=== PATIENT | male | born 1940 | race Caucasian/White ===

== ENCOUNTER 2016-05-01 14:50 | Inpatient (IN) | payer MEDICARE, OTHER ==
[~2016-05-01] VITALS: Ht 190.5 cm; Wt 82.3 kg
[~2016-05-01 14:50] MED LIST: ASPIRIN 81M81 MG/TA2 PO; COUMADIN 1MG1 MG/TAB PO; COUMADIN 2MG2 MG/TAB PO; CRESTOR20 MG PO; LOPRESSOR 225 MG/TAB PO; MULTIPLE VITAMI1 CAP PO; NORVASC 5MG5 MG/TAB PO; PRINIVIL5 MG PO; VITAMIN C500 MG PO
[2016-05-01] MEDS ORDERED: COUMADIN 2MG2 MG/TAB PO (16:01)
[2016-05-01] MEDS ORDERED: CALCITRIOL PO (16:03)
[2016-05-01] MEDS ORDERED: NATURAL E400 IU PO (16:06)
[2016-05-01] MEDS ORDERED: XALATAN EYE DROPS OU (16:07)
[2016-05-01] MEDS ORDERED: PROAIR HFA0.09 MG/AC IH (16:08)
[2016-05-01 16:33] VITALS: BP 164/88; PULSE 110; TEMP 98.2
[2016-05-01 16:44] VITALS: BP 163/88; PULSE 106; TEMP 97.6
[2016-05-01 18:01] LABS: BASO # 0.1 (0.0-0.2); BASO % 0.9 % (0.0-2.0); EOS # 0.1 (0.0-0.7); EOS % 0.9 % (0-4.0); GRAN # 5.7 (1.4-6.5); LYMPH # 0.6 (1.2-3.4); LYMPH % 8.1 % (20.0-51.0); MEAN CELL VOLUME 87 fl (80.0-100.0); MEAN CORPUSCULAR HGB CONC 34 g/dl (33.0-37.0); MONO # 0.5 (0.1-0.6); MONO % 7.4 % (1.7-9.3); PLATELET COUNT 148 K/mm3 (130-400); RED BLOOD COUNT 3.21 M/mm3 (4.20-5.60); REDCELL DISTRIBUTION WIDTH-CV 14.4 % (11.5-14.5); RETIC % 0.8 % (0.5-3.52)
[2016-05-01 18:03] LABS: HEMOGLOBIN 9.5 g/dl (13.5-18.0); MEAN CORPUSCULAR HEMOGLOBIN 30 pg (27.0-31.0)
[2016-05-01 18:14] LABS: ADJUSTED CALCIUM 8.8 mg/dL (8.4-10.2); ALBUMIN 3.8 gm/dL (3.5-5.0); BILIRUBIN,TOTAL 0.4 mg/dL (0.0-1.0); CALCIUM 8.6 mg/dL (8.4-10.2); POTASSIUM 4.8 mmol/L (3.4-5.0); TOTAL PROTEIN 7.7 gm/dL (6.4-8.2); URIC ACID 7.2 mg/dL (3.5-8.5)
[2016-05-01 18:23] LABS: CREATININE, serum 8.41 mg/dL (0.66-1.25)
[2016-05-01 18:47] LABS: INR 4.4 (0.8-3.0); PROTHROMBIN TIME 51.3 SECONDS (9.7-12.8)
[2016-05-01 18:48] LABS: PHOSPHOROUS 7.5 mg/dL (2.5-4.5)
[2016-05-01 19:09] VITALS: BP 166/91; PULSE 107; TEMP 98.5
[2016-05-01 21:58] LABS: PH 6 (5-8); SQUAMOUS EPITHELIAL 0-2 /hpf; URINE APPEARANCE Hazy; URINE BACTERIA Rare /hpf; URINE BILIRUBIN Negative (NEGATIVE); URINE BLOOD 3+ (NEGATIVE); URINE COLOR Yellow; URINE GLUCOSE 1+ (NEGATIVE); URINE KETONE Negative (NEGATIVE); URINE RBC >50 /hpf; URINE UROBILINOGEN Negative (NEGATIVE); URINE WBC >50 /hpf
[2016-05-01 23:31] VITALS: BP 157/88; PULSE 104; TEMP 98.5
[2016-05-02] VITALS (12 sets, daily range): BP systolic 137–163; BP diastolic 73–89; PULSE 83–106; TEMP 97.3–98.7
[2016-05-02 08:24] LABS: INR 2.5 (0.8-3.0); PROTHROMBIN TIME 28.9 SECONDS (9.7-12.8)
[2016-05-02 08:33] LABS: ALBUMIN 3.8 gm/dL (3.5-5.0); CALCIUM 8.7 mg/dL (8.4-10.2); PHOSPHOROUS 7.6 mg/dL (2.5-4.5); POTASSIUM 4.8 mmol/L (3.4-5.0)
[2016-05-02 08:49] LABS: CREATININE, serum 8.17 mg/dL (0.66-1.25)
[2016-05-02 09:18] LABS: BASO % 0.8 % (0.0-2.0); EOS # 0.2 (0.0-0.7); EOS % 3.2 % (0-4.0); GRAN # 3.9 (1.4-6.5); GRAN % 72.7 % (42.2-75.2); LYMPH # 0.8 (1.2-3.4); LYMPH % 14.1 % (20.0-51.0); MEAN CELL VOLUME 87 fl (80.0-100.0); MEAN CORPUSCULAR HGB CONC 34 g/dl (33.0-37.0); MEAN PLATELET VOLUME 11.5 fl (7.4-10.4); MONO # 0.5 (0.1-0.6); PLATELET COUNT 168 K/mm3 (130-400); RED BLOOD COUNT 3.14 M/mm3 (4.20-5.60); REDCELL DISTRIBUTION WIDTH-CV 14.4 % (11.5-14.5); WHITE BLOOD COUNT 5.3 K/mm3 (4.8-10.8)
[2016-05-02 09:19] LABS: HEMATOCRIT 27.4 % (42.0-52.0); HEMOGLOBIN 9.3 g/dl (13.5-18.0); MEAN CORPUSCULAR HEMOGLOBIN 30 pg (27.0-31.0)
[2016-05-03] VITALS (8 sets, daily range): BP systolic 129–168; BP diastolic 70–86; PULSE 88–103; TEMP 97.9–98.5
[2016-05-03 07:51] LABS: INR 1.5 (0.8-3.0); PROTHROMBIN TIME 16.6 SECONDS (9.7-12.8)
[2016-05-03 07:56] LABS: ALBUMIN 4.1 gm/dL (3.5-5.0); CALCIUM 9.4 mg/dL (8.4-10.2); PHOSPHOROUS 8.4 mg/dL (2.5-4.5); POTASSIUM 4.8 mmol/L (3.4-5.0)
[2016-05-03 08:58] LABS: CREATININE, serum 7.5 mg/dL (0.66-1.25)
[2016-05-04 03:45] VITALS: BP 140/72; PULSE 97; TEMP 97.4
[2016-05-04 07:18] VITALS: BP 154/69; PULSE 99
[2016-05-04 09:16] LABS: INR 1.8 (0.8-3.0); PROTHROMBIN TIME 20.4 SECONDS (9.7-12.8)
[2016-05-04 09:42] LABS: CALCIUM 8.9 mg/dL (8.4-10.2); PHOSPHOROUS 7.4 mg/dL (2.5-4.5); POTASSIUM 3.9 mmol/L (3.4-5.0)
[2016-05-04 09:44] LABS: CREATININE, serum 6.31 mg/dL (0.66-1.25)
[2016-05-04 11:25] VITALS: BP 145/72; PULSE 100; TEMP 98.6
[2016-05-04 15:13] VITALS: BP 128/69; PULSE 104; TEMP 98
[2016-05-04 19:18] VITALS: BP 119/63; PULSE 104; TEMP 98.7
[2016-05-04 22:43] VITALS: BP 118/61; PULSE 90; TEMP 98.8
[2016-05-05 04:38] VITALS: BP 128/68; PULSE 88; TEMP 97.3
[2016-05-05 07:25] VITALS: BP 142/65; PULSE 88; TEMP 97.8
[2016-05-05 07:57] LABS: PROTHROMBIN TIME 23.2 SECONDS (9.7-12.8)
[2016-05-05 08:13] LABS: ALBUMIN 3.6 gm/dL (3.5-5.0); CALCIUM 8.5 mg/dL (8.4-10.2); PHOSPHOROUS 5.5 mg/dL (2.5-4.5); POTASSIUM 3.9 mmol/L (3.4-5.0)
[2016-05-05 08:15] LABS: CREATININE, serum 4.85 mg/dL (0.66-1.25)
[2016-05-05] MEDS ORDERED: COUMADIN 2MG2 MG/TAB PO (09:36)
[2016-05-05] MEDS ORDERED: COUMADIN 1MG1 MG/TAB PO (09:36)
== END 2016-05-05 13:13 | disposition home or self-care (01) | DRG 682 ==
LOC: MEDICAL 14:50
PROVIDERS: Internal Medicine Gastroenterology; Internal Medicine Nephrology; Urology
PROC: 0DJD8ZZ Inspection of Lower Intestinal Tract, Via Natural or Artificial Opening Endoscopic (ICD-10-PCS; 2016-05-02)
PROC: 0T768DZ Dilation of Right Ureter with Intraluminal Device, Via Natural or Artificial Opening Endoscopic (ICD-10-PCS; principal; 2016-05-02 09:15)
PROC: 0TP98DZ Removal of Intraluminal Device from Ureter, Via Natural or Artificial Opening Endoscopic (ICD-10-PCS; 2016-05-02 09:15)
PROC: 0DJ08ZZ Inspection of Upper Intestinal Tract, Via Natural or Artificial Opening Endoscopic (ICD-10-PCS; 2016-05-02 09:15)
PROC: 0DBL8ZX Excision of Transverse Colon, Via Natural or Artificial Opening Endoscopic, Diagnostic (ICD-10-PCS; 2016-05-03)
DX: N17.9 Acute kidney failure, unspecified (principal); I50.23 Acute on chronic systolic (congestive) heart failure; I13.0 Hypertensive heart and chronic kidney disease with heart failure and stage 1 through stage 4 chronic kidney disease, or unspecified chronic kidney disease; K92.1 Melena; N18.4 Chronic kidney disease, stage 4 (severe); D63.1 Anemia in chronic kidney disease; Z85.46 Personal history of malignant neoplasm of prostate; E87.5 Hyperkalemia; Z95.2 Presence of prosthetic heart valve; Z79.01 Long term (current) use of anticoagulants; D12.3 Benign neoplasm of transverse colon; K62.7 Radiation proctitis; R73.9 Hyperglycemia, unspecified; N13.1 Hydronephrosis with ureteral stricture, not elsewhere classified
CPT/HCPCS: C1726; C1769; C2617; J0690; J0882; J1100; J2405; J2704; J2916; J3010; J7030; Q9967

== ENCOUNTER 2016-05-27 14:28 | Inpatient (IN) | payer MEDICARE, OTHER ==
[~2016-05-27] VITALS: Ht 190.5 cm; Wt 82.3 kg
[~2016-05-27 14:28] MED LIST changes: +CALCITRIOL PO; +NATURAL E400 IU PO; +PROAIR HFA0.09 MG/AC IH; +XALATAN EYE DROPS OU
[2016-05-27 16:22] VITALS: BP 146/82; PULSE 94; TEMP 98.5
[2016-05-27 18:00] LABS: ALBUMIN 3.5 gm/dL (3.5-5.0); CALCIUM 8.1 mg/dL (8.4-10.2); PHOSPHOROUS 6.9 mg/dL (2.5-4.5); POTASSIUM 4.8 mmol/L (3.4-5.0)
[2016-05-27 18:17] LABS: CREATININE, serum 7.36 mg/dL (0.66-1.25)
[2016-05-27 19:52] VITALS: BP 136/81; PULSE 94; TEMP 98
[2016-05-27 23:59] VITALS: BP 110/54; PULSE 92; TEMP 98.4
[2016-05-28 04:09] VITALS: BP 133/77; PULSE 86; TEMP 97.6
[2016-05-28 07:51] VITALS: BP 146/74; PULSE 91; TEMP 98.1
[2016-05-28 08:03] LABS: INR 2.5 (0.8-3.0); PROTHROMBIN TIME 28.8 SECONDS (9.7-12.8)
[2016-05-28 08:04] LABS: EOS # 0.2 (0.0-0.7); EOS % 4.5 % (0-4.0); LYMPH # 0.5 (1.2-3.4); LYMPH % 11.9 % (20.0-51.0); MEAN CELL VOLUME 85 fl (80.0-100.0); MEAN CORPUSCULAR HGB CONC 35 g/dl (33.0-37.0); MEAN PLATELET VOLUME 10.9 fl (7.4-10.4); MONO # 0.5 (0.1-0.6); MONO % 11.4 % (1.7-9.3); PLATELET COUNT 173 K/mm3 (130-400); RED BLOOD COUNT 2.69 M/mm3 (4.20-5.60); REDCELL DISTRIBUTION WIDTH-CV 13.8 % (11.5-14.5); WHITE BLOOD COUNT 4.2 K/mm3 (4.8-10.8)
[2016-05-28 08:17] LABS: HEMATOCRIT 22.9 % (42.0-52.0); MEAN CORPUSCULAR HEMOGLOBIN 30 pg (27.0-31.0)
[2016-05-28 08:19] LABS: ALBUMIN 3.2 gm/dL (3.5-5.0); CALCIUM 8.1 mg/dL (8.4-10.2); PHOSPHOROUS 6.6 mg/dL (2.5-4.5); POTASSIUM 4.4 mmol/L (3.4-5.0)
[2016-05-28 08:57] LABS: CREATININE, serum 7.08 mg/dL (0.66-1.25)
[2016-05-28 11:45] VITALS: BP 132/72; PULSE 88; TEMP 97.6
[2016-05-28] MEDS ORDERED: JANTOVEN1 MG PO (14:42)
[2016-05-28] MEDS ORDERED: COUMADIN 2MG2 MG/TAB PO (14:43)
[2016-05-28 15:09] VITALS: BP 122/67; PULSE 80; TEMP 97.5
[2016-05-28 19:53] VITALS: BP 131/67; PULSE 95; TEMP 98.2
[2016-05-29] VITALS (7 sets, daily range): BP systolic 105–149; BP diastolic 48–81; PULSE 76–91; TEMP 97.5–98.5
[2016-05-29 07:56] LABS: EOS # 0.2 (0.0-0.7); EOS % 4.3 % (0-4.0); GRAN # 2.8 (1.4-6.5); GRAN % 67.4 % (42.2-75.2); LYMPH # 0.6 (1.2-3.4); MEAN CELL VOLUME 87 fl (80.0-100.0); MEAN CORPUSCULAR HGB CONC 34 g/dl (33.0-37.0); MEAN PLATELET VOLUME 10.8 fl (7.4-10.4); MONO # 0.5 (0.1-0.6); MONO % 12.8 % (1.7-9.3); PLATELET COUNT 188 K/mm3 (130-400); RED BLOOD COUNT 2.71 M/mm3 (4.20-5.60); REDCELL DISTRIBUTION WIDTH-CV 14.2 % (11.5-14.5); WHITE BLOOD COUNT 4.2 K/mm3 (4.8-10.8)
[2016-05-29 08:14] LABS: HEMATOCRIT 23.5 % (42.0-52.0); INR 1.9 (0.8-3.0); MEAN CORPUSCULAR HEMOGLOBIN 30 pg (27.0-31.0); PROTHROMBIN TIME 21.3 SECONDS (9.7-12.8)
[2016-05-29 08:21] LABS: ALBUMIN 3.2 gm/dL (3.5-5.0); CALCIUM 7.8 mg/dL (8.4-10.2); PHOSPHOROUS 6.6 mg/dL (2.5-4.5); POTASSIUM 4.4 mmol/L (3.4-5.0)
[2016-05-29 08:46] LABS: CREATININE, serum 6.89 mg/dL (0.66-1.25)
[2016-05-30 07:50] VITALS: BP 146/71; PULSE 86; TEMP 98.4
[2016-05-30 08:15] LABS: BASO # 0.1 (0.0-0.2); BASO % 1.2 % (0.0-2.0); EOS # 0.2 (0.0-0.7); EOS % 4.2 % (0-4.0); GRAN # 2.7 (1.4-6.5); GRAN % 67.8 % (42.2-75.2); LYMPH # 0.5 (1.2-3.4); LYMPH % 13.4 % (20.0-51.0); MEAN CELL VOLUME 87 fl (80.0-100.0); MEAN CORPUSCULAR HGB CONC 34 g/dl (33.0-37.0); MEAN PLATELET VOLUME 11.1 fl (7.4-10.4); MONO # 0.5 (0.1-0.6); MONO % 13.2 % (1.7-9.3); PLATELET COUNT 199 K/mm3 (130-400); RED BLOOD COUNT 2.47 M/mm3 (4.20-5.60); REDCELL DISTRIBUTION WIDTH-CV 14.4 % (11.5-14.5)
[2016-05-30 08:25] LABS: HEMATOCRIT 21.5 % (42.0-52.0); HEMOGLOBIN 7.3 g/dl (13.5-18.0); MEAN CORPUSCULAR HEMOGLOBIN 30 pg (27.0-31.0)
[2016-05-30 08:31] LABS: ALBUMIN 2.9 gm/dL (3.5-5.0); ANION GAP 14 mmol/L (7-16); CARBON DIOXIDE 20 mmol/L (22-30); CHLORIDE 97 mmol/L (98-107); GLUCOSE 74 mg/dL (74-106); PHOSPHOROUS 6.9 mg/dL (2.5-4.5); POTASSIUM 4.3 mmol/L (3.4-5.0); SODIUM 130 mmol/L (137-145)
[2016-05-30 08:35] LABS: INR 2.3 (0.8-3.0); PROTHROMBIN TIME 25.9 SECONDS (9.7-12.8)
[2016-05-30 08:36] LABS: B-TYPE NATRIURETIC PEPTIDE >35000 pg/mL (0-450)
[2016-05-30 08:41] LABS: BLOOD UREA NITROGEN 79 mg/dL (9-20)
[2016-05-30 08:42] LABS: CREATININE, serum 7.27 mg/dL (0.66-1.25)
[2016-05-30 10:39] VITALS: BP 146/71; PULSE 86; TEMP 98.4
[2016-05-30] MEDS ORDERED: SODIUM BICARBO650 MG PO (10:54)
[2016-05-30] MEDS ORDERED: LASIX 20MG TABL20 MG PO (10:58)
[2016-05-30] MEDS ORDERED: DULCOLAX TAB5 MG PO (10:59)
[2016-05-30] MEDS ORDERED: AMBIEN 10MG10 MG PO (11:01)
== END 2016-05-30 11:57 | DRG 683 ==
LOC: MEDICAL 14:28
PROVIDERS: Internal Medicine Nephrology
DX: N17.9 Acute kidney failure, unspecified (principal); E87.1 Hypo-osmolality and hyponatremia; I12.9 Hypertensive chronic kidney disease with stage 1 through stage 4 chronic kidney disease, or unspecified chronic kidney disease; N18.4 Chronic kidney disease, stage 4 (severe); D63.1 Anemia in chronic kidney disease; I50.9 Heart failure, unspecified; Z79.01 Long term (current) use of anticoagulants; Z79.82 Long term (current) use of aspirin; Z85.46 Personal history of malignant neoplasm of prostate; Z95.2 Presence of prosthetic heart valve
CPT/HCPCS: J0882; J1650; J7030